=== PATIENT | female | born 1945 | race Caucasian/White ===

== ENCOUNTER 2021-09-08 07:50 | Inpatient (IN) ==
[2021-09-08] MEDS ORDERED: CeFAZolin Syr 2,000MG/20 ML 2,000 MG/20 ML SYRINGE IVPB ONE (08:14)
[2021-09-08] MEDS ORDERED: Ringers Solution, Lactated 1,000 ML IVC SCH (08:15)
[2021-09-08] MEDS ORDERED: *HR* OxyCODONE Immed Rel 5 MG TABLET PO PRN (08:49)
[2021-09-08] MEDS ORDERED: *HR* HYDROmorphone PF 0.5 MG/0.5 ML SYRINGE IVP PRN (08:49)
[2021-09-08] MEDS ORDERED: Albuterol 2.5 MG/3 ML NEBULIZER IH ONE (08:49)
[2021-09-08] MEDS ORDERED: Famotidine 20 MG/2 ML VIAL IVP ONE (08:49)
[2021-09-08] MEDS ORDERED: Acetaminophen IV 1,000 MG/100 ML BAG IVPB ONE (08:49)
[2021-09-08] MEDS ORDERED: Albuterol 2.5 MG/3 ML NEBULIZER IH PRN (08:49)
[2021-09-08] MEDS ORDERED: Ondansetron 4 MG/2 ML VIAL IVP PRN ×2 (08:49→13:40)
[2021-09-08] MEDS ORDERED: *HR* Rocuronium Bromide 50 MG/5 ML VIAL ONE (09:49)
[2021-09-08] MEDS ORDERED: Lidocaine -MPF 2% 2 ML VIAL ONE ×2 (09:49→09:51)
[2021-09-08] MEDS ORDERED: *HR* FentaNYL (PF) 100 MCG/2 ML VIAL ONE ×2 (09:50→11:28)
[2021-09-08] MEDS ORDERED: *HR* Propofol 200 MG/20 ML VIAL IVP ONE (09:50)
[2021-09-08] MEDS ORDERED: Sugammadex Sodium 200 MG/2 ML VIAL IV ONE (10:22)
[2021-09-08] MEDS ORDERED: Naloxone 0.4 MG/ML INJ IVP PRN (13:40)
[2021-09-08] MEDS: 0.9 % Sodium Chloride 1,000 ML IVC SCH (14:13)
[2021-09-08] MEDS: *HR* HYDROcodone/Acet 5/325 mg TABLET PO PRN ×2 (14:47→20:22)
[2021-09-08] MEDS: Gabapentin 300 MG CAPSULE PO SCH ×2 (15:29→20:23)
[2021-09-08] MEDS: *HR* Heparin 5,000 UNIT/ML VIAL SQ SCH ×2 (15:29→20:23)
[2021-09-08] MEDS: Ipratropium/Albuterol Neb 3 ML IH SCH ×2 (15:30→20:12)
[2021-09-08] MEDS: Famotidine 20 MG TABLET PO SCH (20:22)
[2021-09-08] MEDS: Sennosides/Docusate Sodium TABLET PO SCH (20:23)
[2021-09-09] MEDS: Ipratropium/Albuterol Neb 3 ML IH SCH ×4 (00:05→11:54)
[2021-09-09] MEDS ORDERED: Budesonide/Formoterol 160/4.5 1 PUFF INH IH ONE (00:10)
[2021-09-09] MEDS ORDERED: Tiotropium 10 INH DOSE IH ONE (00:11)
[2021-09-09] MEDS: 0.9 % Sodium Chloride 1,000 ML IVC SCH (01:46)
[2021-09-09] MEDS: *HR* HYDROcodone/Acet 5/325 mg TABLET PO PRN (01:46)
[2021-09-09 04:48] VITALS: O2SAT 98
[2021-09-09] MEDS: *HR* Heparin 5,000 UNIT/ML VIAL SQ SCH (04:50)
[2021-09-09 04:57] LABS: Hematocrit 32.2 % (35.3-44.9); Mean Corpuscular HGB Conc 33.5 g/dL (31.6-35.5); Mean Corpuscular Hemoglobin 30.3 pg (28.0-33.3); Mean Corpuscular Volume 90.4 fL (83.0-100.0); Mean Platelet Volume 10.1 fL (9.4-12.4); Platelet Count 194 K/mcL (140-400); Red Blood Count 3.56 M/mcL (3.82-4.97); Red Cell Distribution Width 12.6 % (11.5-14.5)
[2021-09-09 05:00] LABS: Hemoglobin 10.8 g/dL (11.5-15.4); White Blood Count 9.6 K/mcL (4.3-11.1)
[2021-09-09 05:19] LABS: BUN/Creatinine Ratio 16 (6-26); Blood Urea Nitrogen 12 mg/dL (8-23); Calcium 8.6 mg/dL (8.6-10.3); Carbon Dioxide 26 mEq/L (23-29); Chloride 106 mEq/L (98-107); Glucose 110 mg/dL (70-105); Osmolality,Calculated 286 (280-300); Sodium 138 mEq/L (136-145); eGFR For African Americans > 60 (> 60); eGFR For Non-African Americans > 60 (> 60)
[2021-09-09 07:20] VITALS: BP 109/39; PULSE 89; TEMP 98.2
[2021-09-09] MEDS: Gabapentin 300 MG CAPSULE PO SCH (08:01)
[2021-09-09] MEDS: Famotidine 20 MG TABLET PO SCH (08:01)
[2021-09-09] MEDS: Sennosides/Docusate Sodium TABLET PO SCH (08:01)
[2021-09-09] MEDS ORDERED: Budesonide/Formoterol 80/4.5 1 PUFF INH IH SCH (10:00)
[2021-09-09] MEDS ORDERED: Tiotropium 10 INH DOSE IH SCH (10:00)
== END 2021-09-09 12:08 | disposition home or self-care (01) | DRG 168 ==
LOC: SAMDAY 07:50 → 2NNU 13:38
PROVIDERS: ADMIT Thoracic Surgery (Cardiothoracic Vascular Surgery); ATTEND Thoracic Surgery (Cardiothoracic Vascular Surgery)
PROC: ENDOBRF (2021-09-08 10:15)